=== PATIENT | female | born 1930 | race Caucasian/White ===

== ENCOUNTER 2016-08-28 07:14 | Day surgery (SDC) | payer MEDICARE, OTHER ==
--- NOTE | ~2016-08-28 | EGD ---
EGD REPORT [facility] [address] [address] NAME: MARIAM GREENE : [birth year] STATUS : REG [facility] PAT#: [id number] AGE: 86 ADM/REG DATE : 08/28/16 MR#: [id number] REPORT SERV DATE: 08/28/16 DICTATED BY: PEPE CELIS III DATE: 08/28/16 REPORT STATUS : Draft TRANSCRIBED BY: [facility] DATE: 08/28/16 Endoscopy Center Patient Name: Mariam Greene Date of : 1930 Attending MD: PEPE CELIS III, MD Procedure Date No Time: 08/28/2016 Procedure: Upper GI endoscopy Indications: Abnormal CT of the GI tract, Weight loss Referring MD: TIAGO STARK Medicines: Propofol per Anesthesia Complications: No immediate complications. Procedure: Pre-Anesthesia Assessment: - ASA Grade Assessment: III - A patient with severe systemic disease. After obtaining informed consent, the endoscope was passed under direct vision. Throughout the procedure, the patient's blood pressure, pulse, and oxygen saturations were monitored continuously. The [facility] [id number] was introduced through the mouth, and advanced to the third part of duodenum. The upper GI endoscopy was accomplished with ease. The patient tolerated the procedure well. Findings: A non-obstructing Schatzki ring (acquired) was found at the gastroesophageal junction. A medium-sized hiatus hernia was present. Diffuse mildly erythematous mucosa without bleeding was found in the gastric antrum. Biopsies were taken with a cold forceps for histology. The examined duodenum was normal. Biopsies were taken with a cold forceps for evaluation of celiac disease. Impression: - Non-obstructing Schatzki ring. - Hiatus hernia. - Erythematous mucosa in the antrum. Biopsied. - Normal examined duodenum. Biopsied. Recommendation: - Patient has a contact number available for emergencies. The signs and symptoms of potential delayed complications were discussed with the patient. Return to normal activities tomorrow. Written discharge instructions were provided to the patient. - Discharge patient to home. - Return to previous diet. - Follow an antireflux regimen. EGD REPORT [address] [address] NAME: MARIAM GREENE : [birth year] STATUS : REG [facility] PAT#: [id number] AGE: 86 ADM/REG DATE : 08/28/16 MR#: [id number] REPORT SERV DATE: 08/28/16 DICTATED BY: PEPE CELIS III DATE: 08/28/16 REPORT STATUS : Draft TRANSCRIBED BY: [employer] DATE: 08/28/16 - Continue present medications. - Await pathology results. Procedure Code(s): --- Professional --- 75037, Esophagogastroduodenoscopy, flexible, transoral; with biopsy, single or multiple Diagnosis Code(s): --- Professional --- K22.2, Esophageal obstruction K44.9, Diaphragmatic hernia without obstruction or gangrene K31.9, Disease of stomach and duodenum, unspecified R93.3, Abnormal findings on diagnostic imaging of other parts of digestive tract R63.4, Abnormal weight loss CPT copyright 2013 [employer]. All rights reserved. The codes documented in this report are preliminary and upon brush cleaner review may be revised to meet current compliance requirements. PEPE CELIS III, MD 08/28/2016 8:46 AM This report has been signed electronically. Number of Addenda: 0 Note Initiated On: 08/28/2016 8:32 AM Scope Withdrawal Time 0 hours 0 minutes 0 seconds [id number] [id number]
[~2016-08-28 07:14] MED LIST: ACET500CAP PO; APRES25 PO; COZAAR100 MG PO; CYANO1000T PO; FLONASE NAS; NORV10 PO; VITAMIN D31000 UNIT PO; XARELTO20 MG PO; ZOCOR20 PO
== END 2016-08-28 23:59 | disposition home or self-care (01) ==
LOC: DMU 07:14
PROVIDERS: Internal Medicine Gastroenterology
PROC: 0DB98ZX Excision of Duodenum, Via Natural or Artificial Opening Endoscopic, Diagnostic (ICD-10-PCS; 2016-08-28)
PROC: 0DB68ZX Excision of Stomach, Via Natural or Artificial Opening Endoscopic, Diagnostic (ICD-10-PCS; principal; 2016-08-28 09:00)
DX: K22.2 Esophageal obstruction (principal); K44.9 Diaphragmatic hernia without obstruction or gangrene; K57.90 Diverticulosis of intestine, part unspecified, without perforation or abscess without bleeding; K64.9 Unspecified hemorrhoids; I10 Essential (primary) hypertension; I48.91 Unspecified atrial fibrillation; E78.00 Pure hypercholesterolemia, unspecified; Z95.0 Presence of cardiac pacemaker; Z96.1 Presence of intraocular lens; Z98.41 Cataract extraction status, right eye; Z98.42 Cataract extraction status, left eye; Z98.890 Other specified postprocedural states; Z90.49 Acquired absence of other specified parts of digestive tract; Z79.899 Other long term (current) drug therapy
CPT/HCPCS: 88305